=== PATIENT | female | born 1990 | race Caucasian/White ===

== ENCOUNTER → 2022-04-22 | Outpatient (CLI) | payer SELFPAY | END | disposition home or self-care (01) | LOC: LABWHC1 10:53 | PROVIDERS: ATTEND Obstetrics & Gynecology | DX: N97.1 Female infertility of tubal origin (principal) | CPT/HCPCS: 36415; 84144 ==

== ENCOUNTER → 2024-05-27 | Outpatient (CLI) | payer BC ==
--- NOTE | 2024-05-27 17:39 | CT ---
EXAMINATION TYPE: CT sinus wo con DATE OF EXAM: 05/27/2024 5:15 PM COMPARISON: None. CLINICAL INDICATION: Female, 33 years old with history of J32.0 CHRONIC SINUSITIS; , Chronic sinusiti s. TECHNIQUE: Multiple thin axial images were obtained through the paranasal sinuses without the use of IV contrast. Additional coronal and sagittal reformatted images were submitted for evaluation. Contrast used: none Oral contrast used: none CT DLP: 434.6 mGycm, Automated exposure control for dose reduction was used. FINDINGS: Frontal sinuses: Normally developed with mild mucosal thickening.. Frontal Recess: Opacified bilatera lly Maxillary Sinuses: Normally developed with mucosal thickening.. Maxillary Infundibula([facility]): Opacified bilaterally, No Bert cells identified. Ethmoid sinuses: Normally developed with mucosal thickening both anterior and posterior ethmoid air c ells.. Ethmoidal notch: Unprotected bilateral anterior ethmoidal arteries. Sphenoid sinuses: Normally developed with mucosal thickening bilaterally.. There is sphenoid sinus pn eumatization without evidence of dehiscence. No dehiscence of carotid canal. No evidence of optic ne rve dehiscence within the sphenoid sinus. No evidence of Onodi cells. Sphenoethmoidal recesses: Opac ified bilaterally.. Nasal septum: Mild mucosal thickening with leftward deviation anteriorly and rightward deviation more posteriorly near the sphenoid sinus.. Nasal Turbinates: Mucosal thickening of the middle and inferior turbinates. Mastoid air cells & middle ears: The air cells are clear. The middle ears are grossly unremarkable. Modified Soft tissues & Brain: Partially seen without gross abnormality. Globes are intact. Other: Cribriform plate demonstrates symmetric Keros classification type 2 cribriform plate. No evidence of bony dehiscence of skull base. Lamina papyracea is intact without evidence of remote orbital fracture or orbital prolapse into the e thmoid sinus. IMPRESSION: Moderate paranasal sinus disease with opacified ostiomeatal units, frontonasal and sphenoethmoidal re cesses bilaterally. [facility], Workstation: [id number], 05/27/2024 5:37 PM
[2024-05-28 06:16] LABS: Alternaria alternata IgE <0.10 kU/L; Aspergillus fumagatus IgE <0.10 kU/L; Birch IgE <0.10 kU/L; Cat Epith & Dander IgE <0.10 kU/L; Cladosporian herbarum IgE <0.10 kU/L; Cockroach IgE <0.10 kU/L; Dermato. farinae IgE <0.10 kU/L; Dog Dander IgE <0.10 kU/L; Elm IgE <0.10 kU/L; Maple (Box Elder) IgE <0.10 kU/L; Oak IgE <0.10 kU/L; Ragweed,Common IgE <0.10 kU/L; Red Top (Bentgrass) IgE <0.10 kU/L
== END | disposition home or self-care (01) ==
LOC: RADCTMAIN 16:23
PROVIDERS: ATTEND Otolaryngology
DX: J32.0 Chronic maxillary sinusitis (principal); J30.89 Other allergic rhinitis
CPT/HCPCS: 70486; 82785; 86003